=== PATIENT | female | born 1985 | race Caucasian/White ===

== ENCOUNTER 2019-09-09 16:00 | Outpatient (CLI) | payer OTHER | END 2019-09-09 16:01 | disposition home or self-care (01) | LOC: SLEEPLAB 16:00 | PROVIDERS: ATTEND Internal Medicine | DX: G47.33 Obstructive sleep apnea (adult) (pediatric) (principal); R53.83 Other fatigue; R06.83 Snoring; E06.3 Autoimmune thyroiditis; G47.00 Insomnia, unspecified; G43.909 Migraine, unspecified, not intractable, without status migrainosus; E66.9 Obesity, unspecified; Z68.41 Body mass index [BMI] 40.0-44.9, adult | CPT/HCPCS: 95806 ==

== ENCOUNTER 2020-01-22 10:25 | Outpatient (CLI) | payer OTHER | END 2020-01-22 10:26 | disposition home or self-care (01) | LOC: CTENTCT 10:25 | PROVIDERS: ATTEND Student in an Organized Health Care Education/Training Program | DX: J01.90 Acute sinusitis, unspecified (principal) | CPT/HCPCS: 70486 ==

== ENCOUNTER 2020-10-30 08:39 | Outpatient (CLI) | payer OTHER ==
[2020-10-31 02:09] LABS: SARS-CoV-2 MS2 Positive; SARS-CoV-2 N Gene Negative; SARS-CoV-2 S Gene Negative; SARS-CoV-2 by NAA Not Detected (NotDetected); SARS-CoV-2 orf1ab Negative
== END 2020-10-30 08:40 | disposition home or self-care (01) ==
LOC: LABBT 08:39
PROVIDERS: ATTEND Student in an Organized Health Care Education/Training Program
DX: Z01.812 Encounter for preprocedural laboratory examination (principal); J34.2 Deviated nasal septum; J34.89 Other specified disorders of nose and nasal sinuses; J34.3 Hypertrophy of nasal turbinates; H91.90 Unspecified hearing loss, unspecified ear; H93.8X9 Other specified disorders of ear, unspecified ear; R09.81 Nasal congestion; Z20.828 Contact with and (suspected) exposure to other viral communicable diseases
CPT/HCPCS: 85014; 87635; U0003

== ENCOUNTER 2020-11-03 09:21 | Day surgery (SDC) | payer OTHER ==
[2020-11-02 09:12] VITALS: BMI 39.9
[2020-11-03] MEDS ORDERED: AFRIN NASAL MIST 15 ML BOT ONE ×2 (09:57→13:10)
[2020-11-03] MEDS ORDERED: Dexamethasone 20 MG/5 ML VIAL ONE (10:13)
[2020-11-03] MEDS ORDERED: Ondansetron PF 4 MG/2 ML Vial ONE (10:13)
[2020-11-03] MEDS ORDERED: PROPOFOL 200 MG/20 ML VIAL ONE (10:13)
[2020-11-03] MEDS ORDERED: Lidocaine 1% PF 5 ML VIAL ONE (10:13)
[2020-11-03] MEDS ORDERED: HYDROmorphone 0.5 MG/0.5 ML SYRINGE ONE ×2 (13:03→14:58)
[2020-11-03] MEDS ORDERED: Fentanyl 100 MCG/2 ML VIAL ONE ×3 (13:03→16:30)
[2020-11-03] MEDS ORDERED: Midazolam HCl 2 mg/2 ml Vial ONE (13:03)
[2020-11-03] MEDS ORDERED: Bacitracin Zinc Ointment 30 gm TUBE ONE (13:10)
[2020-11-03] MEDS ORDERED: Lidocaine 1% w/Epinephrine 1:100K 20 ML VIAL ONE (13:10)
[2020-11-03] MEDS ORDERED: Promethazine HCl 25 MG/ML VIAL ONE (16:59)
--- NOTE | 2020-11-04 13:36 | OP ---
DATE OF PROCEDURE: 11/03/2020 PREOPERATIVE DIAGNOSES: Septal deviation, turbinate hypertrophy and nasal valve collapse, sinusitis, joana bullosa, nasal congestion. POSTOPERATIVE DIAGNOSES: Septal deviation, turbinate hypertrophy and nasal valve collapse, sinusitis, joana bullosa, nasal congestion. PROCEDURES: Septoplasty, submucosal resection of inferior turbinates, and reconstruction of nasal valves, take down of right joana bullosa, balloon dilation of bilateral frontal, maxillary and sphenoid sinuses, outfracture of inferior turbinates. PERMIT: Procedures, benefits and risks including those of bleeding, infection, injury, anesthesia, allergic reaction, CSF leak, damage to surrounding sinus tissues, scarring necessitating revision or repair and alternatives were reviewed with the patient and family who expressed understanding of the information. A consent form was signed and witnessed and a paper copy of the consent form is available for review in the paper chart. INDICATIONS: Patient presenting to clinic with exam findings of septal deviation, sinusitis turbinate hypertrophy and severe nasal valve collapse causing persistent nasal congestion and difficulty breathing, which was recalcitrant to medical management and is now brought to the operating room for operative treatment. ASSISTANTS: None. FINDINGS: Severe septal deviation with septal spurs, turbinate hypertrophy and nasal valve collapse, right joana bullosa. DESCRIPTION OF OPERATION: The patient was brought to the operating room and laid supine on the operating room table. General endotracheal anesthesia was administered and the septum was infiltrated with 1% lidocaine with 1:100,000 epinephrine and 6 Afrin-soaked cottonoids were placed in the bilateral nasal cavities, 3 on each side. The patient was then prepped and draped in a usual fashion. Image guidance system was calibrated and used for confirmation before and after balloon dilation of sinuses. The nose was then evaluated endoscopically. The patient was seen to have a severe septal deviation and septal spurs. At this point, a left Erlin incision was made followed by elevation of the mucoperichondrial flaps with a combination of a 15 blade, Jareth elevator and the Drea. The cartilaginous aspect of the septum was incised anteriorly, taking care to leave at least a 1.5 cm margin from the anterior septal border. Incision was made along the cartilage and the contralateral mucoperichondrial flap was then elevated as well. At this point, the swivel knife was used to remove the deviated cartilaginous portion of the nasal septum and then evaluation of the bony septum was seen and showed deviation causing obstruction. Double-action scissors were used to cut both superiorly and inferiorly and Shelli's were used to remove the deviated aspects of the septum. The nose was then carefully analyzed bilaterally and it was clear that there was no obstruction from deviation and the remaining cartilaginous portions of the septum that were straight were replaced and a quilting mattress suture was then used to replace the mucoperichondrial flaps together with 4-0 chromic suture on a Martell needle and the Erlin incision was then closed in a running fashion with a 5-0 chromic suture. Next, attention was turned to the bilateral inferior turbinate reductions, which were then performed. Next, a stab incision was made along the anterior inferior head of each inferior turbinates followed by elevation with an elevator. An oscillating debrider was then placed in the pocket and used to remove the erectile tissue from inside the inferior turbinates on both sides thus reducing the size of the inferior turbinates bilaterally. After this was performed, both inferior turbinates were then lateralized and outfractured using a Dumont elevator. At this point, attention was turned to the nasal valve reconstruction. Bilateral nasal valve stenosis and collapse were observed with the endoscope. The left nasal ala was stabilized with a double-prong skin hook and an implant was inserted into the left internal nasal wall at the level of the nasal vibrissae. An implant was then inserted deep to the cartilaginous structures of the nasal ala and the left nasal sidewall and seated superiorly laterally to the nasal bone edge to anchor the left nasal sidewall and prevent collapse. The implant was seated well and palpation of the nasal wall showed good position of the implant. Attention was then turned to the right side and the same procedure was performed. The right nasal ala was stabilized with a double-prong skin hook and an implant was inserted into the right internal nasal wall at the level of the nasal vibrissae. The implant was inserted deep to the cartilaginous structures of the nasal ala and the right nasal sidewall and seated superior lateral to the nasal bone edge to anchor the nasal sidewall and prevent collapse. The implant was seated well and palpation of the nasal wall showed good position of the implant. At this point, the nasal cavity and nose were evaluated with the endoscope and it was clear that there was no deviation or obstruction. At this point the right joana bullosa was taken down with the help of a straight suction, freer and [place], there was minimal bleeding which was stopped with afrin pledgets for 30 seconds then removed. Attention was then turned to the balloon dilation portion of the case. The left sphenoid sinus was identified with straight suction and a freer and the balloon was brought into place and dilated for a period of 30 seconds. The same procedure was performed on the opposite side and confirmation was made with both visual inspection and image guidance. Next the left and right frontal sinuses were dilated by identifying the frontal sinus natural outflow tract with a frontal sinus seeker and then dilated starting with the left then right for 30 seconds after transillumination confirmation and again with both visual and image guided confirmation. Next the maxillary sinuses both left and right were dilated, locating the natural ostia and using transillumination for 30 seconds both the left then the right. There was no bleeding after placement of Afrin pledgets for 1 minute. Next the bilateral Leon splints were placed and held with a 2-0 silk suture on the anterior septum. The endoscopes were used to evaluate and showed that the Leon splints were in good place. The patient tolerated the procedure well without complications and the patient was turned back to Anesthesia for emergence. Job ID: [id number] [facility]
== END 2020-11-03 18:36 | disposition home or self-care (01) ==
LOC: SDC 09:21
PROVIDERS: ATTEND Student in an Organized Health Care Education/Training Program
PROC: 09BS8ZZ Excision of Right Frontal Sinus, Via Natural or Artificial Opening Endoscopic (ICD-10-PCS; principal; 2020-11-03)
PROC: 09CW8ZZ Extirpation of Matter from Right Sphenoid Sinus, Via Natural or Artificial Opening Endoscopic (ICD-10-PCS; principal; 2020-11-03)
PROC: 09CX8ZZ Extirpation of Matter from Left Sphenoid Sinus, Via Natural or Artificial Opening Endoscopic (ICD-10-PCS; principal; 2020-11-03)
PROC: 09BL8ZZ Excision of Nasal Turbinate, Via Natural or Artificial Opening Endoscopic (ICD-10-PCS; principal; 2020-11-03)
PROC: 099Q8ZZ Drainage of Right Maxillary Sinus, Via Natural or Artificial Opening Endoscopic (ICD-10-PCS; principal; 2020-11-03)
PROC: 099R8ZZ Drainage of Left Maxillary Sinus, Via Natural or Artificial Opening Endoscopic (ICD-10-PCS; principal; 2020-11-03)
PROC: 09BT8ZZ Excision of Left Frontal Sinus, Via Natural or Artificial Opening Endoscopic (ICD-10-PCS; principal; 2020-11-03)
PROC: 09BM8ZZ Excision of Nasal Septum, Via Natural or Artificial Opening Endoscopic (ICD-10-PCS; principal; 2020-11-03)
DX: J32.4 Chronic pansinusitis (principal); J34.0 Abscess, furuncle and carbuncle of nose; J34.89 Other specified disorders of nose and nasal sinuses; J34.3 Hypertrophy of nasal turbinates; E06.3 Autoimmune thyroiditis; Z79.899 Other long term (current) drug therapy; Z88.1 Allergy status to other antibiotic agents; Z91.018 Allergy to other foods
CPT/HCPCS: J1100; J1170; J2250; J2405; J2550; J2704; J3010